=== PATIENT | female | born 1955 | race Caucasian/White ===

== ENCOUNTER 2020-05-28 12:04 | Emergency (ER) | payer OTHER ==
[~2020-05-28] VITALS: Ht 170.2 cm; Wt 62.6 kg
[2020-05-28 13:36] LABS: Source, Urine Clean Catch
[2020-05-28 13:47] LABS: Bilirubin, Urine Neg (Neg); Blood, Urine 1+ (Neg); Glucose Qualitative, Urine Neg (Neg); Ketones, Urine Neg (Neg); Leukocyte Esterase, Urine Neg (Neg); Nitrite, Urine Neg (Neg); Protein, Urine Neg (Neg); Urobilinogen, Urine NORM (Normal); pH, Urine 6.5 (5.0-8.0)
[2020-05-28 13:57] LABS: Appearance, Urine Clear (Clear); Color, Urine Pale Yellow (P-Yellow)
[2020-05-28 13:58] LABS: Bacteria Not Seen /hpf; Red Blood Cells, Urine 0-2 /hpf (0-2); Squamous Epithelial Cells Not Seen /hpf (Few); White Blood Cells, Urine Not Seen /hpf (0-5)
[2020-05-28] MEDS ORDERED: PROG100 PO (14:00)
[2020-05-28] MEDS ORDERED: LEVSOD75 PO (14:00)
[2020-05-28] MEDS ORDERED: CLIMARA1 EACH TOP (14:00)
[2020-05-28] MEDS ORDERED: HYDPAM50 PO (14:01)
[2020-05-28 17:00] LABS: Candida species (DNA Probe) Negative (NEGATIVE); G. vaginalis (DNA Probe) Negative (NEGATIVE); T. vaginalis (DNA Probe) Negative (NEGATIVE)
[2020-06-01 02:07] LABS: CHLAMYDIA BY NAA Negative (Negative); GONOCOCCUS BY NAA Negative (Negative); TRICH VAG BY NAA Negative (Negative)
== END 2020-05-28 17:00 | disposition home or self-care (01) ==
LOC: ER 12:04
PROVIDERS: Emergency Medicine; Physician Assistant
DX: N89.8 Other specified noninflammatory disorders of vagina (principal); Z79.899 Other long term (current) drug therapy
CPT/HCPCS: 81001; 87480; 87491; 87510; 87591; 87660; 87661; 99284-25